=== PATIENT | male | born 1960 | race Caucasian/White ===

== ENCOUNTER 2023-02-17 12:05 | Emergency (ER) | payer MEDICAID ==
[~2023-02-17] VITALS: Ht 182.9 cm; Wt 74.2 kg
[2023-02-17 12:15] VITALS: TEMP 99
[2023-02-17 18:53] LABS: BASOPHILS # (AUTO) 0.1 X10'3 (0-0.2); BASOPHILS % (AUTO) 0.9 % (0-1); EOSINOPHILS # (AUTO) 0.2 X10'3 (0-0.9); EOSINOPHILS % (AUTO) 3.1 % (0-6); HEMATOCRIT 42.6 % (42.0-52.0); HEMOGLOBIN 14.4 g/dl (14.0-17.9); LYMPHOCYTES # (AUTO) 1.4 X10'3 (1.1-4.8); LYMPHOCYTES % (AUTO) 22.4 % (21-51); MEAN CORPUSCULAR HEMOGLOBIN 30.5 PG (27.0-31.0); MEAN CORPUSCULAR HGB CONC 33.9 g/dL (33.0-36.5); MEAN PLATELET VOLUME 8.6 FL (7.4-10.4); MONOCYTES # (AUTO) 0.8 X10'3 (0-0.9); MONOCYTES % (AUTO) 13.4 % (2-12); NEUTROPHILS # (AUTO) 3.6 X10'3 (1.8-7.7); NEUTROPHILS % (AUTO) 60.2 % (42-75); PLATELET COUNT 145 X10'3 (140-440); RED BLOOD COUNT 4.73 X10'6 (4.70-6.10)
[2023-02-17 19:00] LABS: BILIRUBIN,URINE NEGATIVE (Neg); CLARITY,URINE CLEAR (Clear); COLOR,URINE STRAW (Yellow); GLUCOSE, URINE NEGATIVE (Neg); KETONES,URINE NEGATIVE (Neg); LEUKOCYTE ESTERASE ,URINE NEGATIVE (Neg); NITRITES, URINE NEGATIVE (Neg); OCCULT BLOOD,URINE NEGATIVE (Neg); PROTEIN,URINE NEGATIVE (Neg)
[2023-02-17 19:01] LABS: UA COLLECTION TYPE URINAL
[2023-02-17 19:09] LABS: ALANINE AMINOTRANSFERASE 20 U/L (12-78); ALBUMIN 3.6 G/DL (3.4-5.0); ALKALINE PHOSPHATASE 72 IU/L (46-116); ANION GAP 2 (8-16); ASPARTATE AMINO TRANSFERASE 21 U/L (10-37); BILIRUBIN,TOTAL 0.4 MG/DL (0.1-1.0); BLOOD UREA NITROGEN 11 MG/DL (7-18); BUN/CREATININE RATIO 8.9 (10.0-20.0); CALCIUM 9.2 MG/DL (8.5-10.1); CHLORIDE 103 MMOL/L (99-107); CREATININE 1.24 MG/DL (0.60-1.10); GLUCOSE 92 MG/DL (70-104); MAGNESIUM 2.2 MG/DL (1.5-2.4); POTASSIUM 4.3 MMOL/L (3.5-5.1); SODIUM 135 MMOL/L (135-145); TOTAL CARBON DIOXIDE 29.8 MMOL/L (24-32); TOTAL PROTEIN 7.2 G/DL (6.4-8.2); eCRCL 63 ML/MIN; eGFR 59 ML/MIN
[2023-02-17] MEDS ORDERED: piperacillin/tazo 3.375gm/50ml 50 ML IV ONE (19:10)
--- NOTE | 2023-02-17 19:15 | NUR ---
Called and spoke with kevin Narayan. Patient confirmed RN could speak with Helene about care. Notified Helene we were waiting on lab and studies to result. Stated she would have patient call with any updates. Helene verbalized understanding.
[2023-02-17] MEDS ORDERED: ACET650T46 PO (19:40)
[2023-02-17] MEDS ORDERED: IBUP-1984 PO (19:40)
[2023-02-17] MEDS ORDERED: DOXY-356 PO (19:40)
[2023-02-17 19:51] VITALS: BP 152/100; PULSE 87; RESP 14; O2SAT 97
--- NOTE | 2023-02-17 20:28 | NUR ---
Called and spoke with daughter Tracy. Tracy is listed as patient's next of care. Tracy notified RN about patient's past medical history and current complaints. Notified Tracy the patient was discharged from facility with prescriptions and to follow up with PCP/vascular clinic. Notified Tracy RN encouraged patient to call for a ride and stated the paitent verbalized he has a ride. Tracy verbalized understanding.
[2023-02-18] MEDS ORDERED: piperacillin/tazo 3.375gm/50ml 50 ML IV SCH
== END 2023-02-17 19:58 | disposition home or self-care (01) ==
LOC: ER 12:06
DX: L03.116 Cellulitis of left lower limb (principal); Z79.1 Long term (current) use of non-steroidal anti-inflammatories (NSAID); Z79.2 Long term (current) use of antibiotics
CPT/HCPCS: 36415; 71045; 80053; 81003; 83605; 83735; 84145; 85025; 93005; 93971; 96365; 99285; J2543

== ENCOUNTER 2024-02-08 11:38 | Emergency (ER) | payer MEDICARE, MEDICAID ==
[~2024-02-08] VITALS: Ht 182.9 cm; Wt 81.8 kg
[~2024-02-08 11:38] MED LIST: ACET650T46 PO
[2024-02-08 15:45] LABS: EOSINOPHILS # (AUTO) 0.2 X10'3 (0-0.9); MONOCYTES # (AUTO) 0.5 X10'3 (0-0.9); NEUTROPHILS # (AUTO) 2.9 X10'3 (1.8-7.7); WHITE BLOOD COUNT 4.9 X10'3 (4.5-11.0)
[2024-02-08 15:47] LABS: BASOPHILS % (AUTO) 0.6 % (0-1); EOSINOPHILS % (AUTO) 3.2 % (0-6); HEMATOCRIT 46.1 % (42.0-52.0); HEMOGLOBIN 15.4 g/dl (14.0-17.9); LYMPHOCYTES # (AUTO) 1.3 X10'3 (1.1-4.8); LYMPHOCYTES % (AUTO) 27.5 % (21-51); MEAN CORPUSCULAR HEMOGLOBIN 30.5 PG (27.0-31.0); MEAN CORPUSCULAR HGB CONC 33.3 g/dL (33.0-36.5); MEAN CORPUSCULAR VOLUME 91.7 FL (78-98); MONOCYTES % (AUTO) 10.3 % (2-12); NEUTROPHILS % (AUTO) 58.4 % (42-75); PLATELET COUNT 148 X10'3 (140-440); RED BLOOD COUNT 5.03 X10'6 (4.70-6.10); RED CELL DISTRIBUTION WIDTH 13.1 % (11.5-14.5)
[2024-02-08 16:28] LABS: ALANINE AMINOTRANSFERASE 15 U/L (12-78); ALBUMIN 3.7 G/DL (3.4-5.0); ALBUMIN/GLOBULIN RATIO 1.1 (1.1-1.5); ALKALINE PHOSPHATASE 66 IU/L (46-116); ANION GAP 7 (8-16); ASPARTATE AMINO TRANSFERASE 17 U/L (10-37); BILIRUBIN,TOTAL 0.7 MG/DL (0.1-1.0); BLOOD UREA NITROGEN 15 MG/DL (7-18); BUN/CREATININE RATIO 13.3 (10.0-20.0); CALCIUM 8.7 MG/DL (8.5-10.1); CHLORIDE 104 MMOL/L (99-107); CREATININE 1.13 MG/DL (0.60-1.10); GLUCOSE 80 MG/DL (70-104); POTASSIUM 4.1 MMOL/L (3.5-5.1); SODIUM 139 MMOL/L (135-145); TOTAL CARBON DIOXIDE 28.4 MMOL/L (24-32); TOTAL PROTEIN 7.2 G/DL (6.4-8.2); eCRCL 72 ML/MIN; eGFR 65 ML/MIN
[2024-02-08 16:50] VITALS: O2SAT 96
[2024-02-08 17:25] VITALS: BP 154/97; PULSE 73; RESP 11; TEMP 98
== END 2024-02-08 17:35 | disposition home or self-care (01) ==
LOC: ER 11:38
DX: G56.31 Lesion of radial nerve, right upper limb (principal); R53.1 Weakness; Z79.1 Long term (current) use of non-steroidal anti-inflammatories (NSAID); Z86.718 Personal history of other venous thrombosis and embolism
CPT/HCPCS: 29125; 70450; 80053; 85025; 93005; 99285